=== PATIENT | female | born 1990 | race Caucasian/White ===

== ENCOUNTER 2017-09-27 10:39 | Emergency (ER) | END 2017-09-27 13:10 | disposition home or self-care (01) ==

== ENCOUNTER 2018-01-03 18:46 | Emergency (ER) | END 2018-01-03 21:30 | disposition home or self-care (01) ==

== ENCOUNTER 2018-09-15 11:28 | Emergency (ER) | payer OTHER, MEDICAID ==
[~2018-09-15] VITALS: Wt 123.6 kg
[~2018-09-15 11:28] MED LIST: ACET500C5 PO; HYDR-4011 PO; IBUP-1542 PO; PNV1TABL12 PO
[2018-09-15 11:32] VITALS: BP 183/100; PULSE 82; RESP 17
[2018-09-15] MEDS ORDERED: ACETAMINOPHEN 325 MG TAB PO STA (12:47)
--- NOTE | 2018-09-15 12:51 | ERD ---
ER Documentation Chief Complaint Chief Complaint VAG BLEEDING X2 DAYS, LMP AUG 02, 2018 HPI This is a 28-year-old A2 female who presents to the ED with complaints of vaginal bleeding since yesterday. Patient states her last menstrual cycle was August 02, 2018. She states she took two at home tests earlier last month which were both positive. She has not been able to see an [employer] yet due to her jury duty. She states she started spotting intermittently 2 days ago and yesterday passed a large clot. She is no longer bleeding but is complaining of bilateral lower pelvic pain. She also reports some lower mid back pain. She denies any fevers, chills, nausea, vomiting, dysuria, frequency, urgency. She is otherwise healthy with no other complaints. ROS All systems reviewed and are negative except as per history of present illness. Medications Home Meds Active Scripts Ibuprofen* (Motrin*) 600 Mg Tab, 600 MG PO Q6H PRN for PAIN AND OR ELEVATED TEMP, #30 TAB Prov:KAYLA ISAACS PA-C 09/15/18 Hydrocodone/Acetaminophen (Himrod 5-325 Tablet) 1 Each Tablet, 1 TAB PO Q6H PRN for PAIN, #7 TAB Prov:RUBEN TOBIN PA-C 01/03/18 Ibuprofen* (Motrin*) 600 Mg Tab, 600 MG PO Q6, #30 TAB Prov:RUBEN TOBINC 01/03/18 Acetaminophen* (Tylophen*) 500 Mg Capsule, 1 CAP PO Q6H PRN for PAIN AND OR ELEVATED TEMP, #30 CAP Prov:LIVE LEMUS PA-C 09/27/17 Reported Medications Pnv Cmb#21/Iron/Folic Acid ( Complete Caplet) 1 Tab Tablet, 1 TAB PO AM 12/11/14 Allergies Allergies: Coded Allergies: No Known Allergy (Unverified , 09/15/18) PMhx/Soc History of Surgery: No Anesthesia Reaction: No Hx Neurological Disorder: No Hx Respiratory Disorders: No Hx Cardiac Disorders: No Hx Psychiatric Problems: No Hx Miscellaneous Medical Probl: No Hx Alcohol Use: No Hx Substance Use: No Hx Tobacco Use: No FmHx Family History: No diabetes Physical Exam Vitals Vital Signs Date Temp Pulse Resp B/P (MAP) Pulse Ox O2 O2 Flow FiO2 Time Delivery Rate 09/15/18 98.5 82 17 183/100 98 11:32 (127) Physical Exam Const: No acute distress Head: Atraumatic Eyes: Normal Conjunctiva ENT: Normal External Ears, Nose and Mouth. Neck: Full range of motion. No meningismus. Resp: Clear to auscultation bilaterally Cardio: Regular rate and rhythm, no murmurs Abd: Soft, + mild bilateral pelvic tenderness, non distended. No rebound or guarding. Normal bowel sounds. Negative McBurney's. Negative Rodgers's. Skin: No petechiae or rashes Back: No midline or flank tenderness Ext: No cyanosis, or edema Neur: Awake and alert Psych: Normal Mood and Affect Result Diagram: 09/15/18 1302 09/15/18 1302 Results 24 hrs Laboratory Tests Test 09/15/18 13:02 White Blood Count 8.3 10^3/ul Red Blood Count 5.04 10^6/ul Hemoglobin 13.3 g/dl Hematocrit 41.6 % Mean Corpuscular Volume 82.5 fl Mean Corpuscular Hemoglobin 26.4 pg Mean Corpuscular Hemoglobin Concent 32.0 g/dl Red Cell Distribution Width 13.7 % Platelet Count 315 10^3/UL Mean Platelet Volume 10.2 fl Immature Granulocytes % 0.500 % Neutrophils % 73.1 % Lymphocytes % 17.3 % Monocytes % 6.7 % Eosinophils % 1.9 % Basophils % 0.5 % Nucleated Red Blood Cells % 0.0 /100WBC Immature Granulocytes # 0.040 10^3/ul Neutrophils # 6.0 10^3/ul Lymphocytes # 1.4 10^3/ul Monocytes # 0.6 10^3/ul Eosinophils # 0.2 10^3/ul Basophils # 0.0 10^3/ul Nucleated Red Blood Cells # 0.0 10^3/ul Urine Color YELLOW Urine Clarity CLEAR Urine pH 5.0 Urine Specific [place] 1.019 Urine Ketones NEGATIVE mg/dL Urine Nitrite NEGATIVE mg/dL Urine Bilirubin NEGATIVE mg/dL Urine Urobilinogen NEGATIVE mg/dL Urine Leukocyte Esterase NEGATIVE Adrianne/ul Urine Microscopic RBC 19 /HPF Urine Microscopic WBC 0 /HPF Urine Hemoglobin 1+ mg/dL Urine Glucose NEGATIVE mg/dL Urine Total Protein NEGATIVE mg/dl Sodium Level 140 mmol/L Potassium Level 4.1 mmol/L Chloride Level 104 mmol/L Carbon Dioxide Level 27 mmol/L Anion Gap 9 Blood Urea Nitrogen 12 mg/dl Creatinine 0.79 mg/dl Est Glomerular Filtrat Rate mL/min > 60 mL/min Glucose Level 95 mg/dl Calcium Level 9.4 mg/dl Total Bilirubin 0.5 mg/dl Direct Bilirubin 0.00 mg/dl Indirect Bilirubin 0.5 mg/dl Aspartate Amino Transf (AST/SGOT) 27 IU/L Alanine Aminotransferase (ALT/SGPT) 47 IU/L Alkaline Phosphatase 69 IU/L Total Protein 8.5 g/dl Albumin 4.6 g/dl Globulin 3.90 g/dl Albumin/Globulin Ratio 1.17 Beta HCG, Quantitative < 2.4 mIU/ml Current Medications Medications Dose Sig/Don Start Time Status Last (Trade) Ordered Route PRN Stop Time Admin Dose Reason Admin 650 mg ONCE STAT 09/15/18 DC 09/15/18 Acetaminophen PO 12:47 13:11 (Tylenol 09/15/18 12:49 Tab) Procedures/MDM EMERGENT LABS AND DIAGNOSTIC STUDIES: Lab Results above were reviewed and interpreted by me as below. CBC: no e/o of systemic infection or severe anemia CMP: no e/o severe acidosis, alkalosis, renal failure, diabetic ketoacidosis, liver disease Urine: 19 RBC, no significant pyuria Beta Hcg: < 2 Radiology Results as interpreted by Radiology: PROCEDURE: US OB. CLINICAL INDICATION: First trimester hemorrhage TECHNIQUE: Transabdominal and transvaginal views of the pelvis are available for review. COMPARISON: No prior studies are available for comparison. FINDINGS: The uterus is anteverted. It measures 7.2 x 3.9 x 4.3 cm. Uterus is of normal contour and echogenicity. No intrauterine gestation sac is present. The endometrial stripe complex is well demarcated measuring 5 mm in diameter. There is no fluid within the canal. The right ovary measures 1.9 x 1.6 x 2.0 cm. centimeter. The left ovary was not seen. No adnexal masses seen. There is normal arterial flow to the right ovary on color-flow Doppler imaging. There is no free fluid in the pelvis. No solid pelvic mass is present. IMPRESSION: No intrauterine gestation visualized. Question viable very early intrauterine versus spontaneous . Ectopic cannot be ruled out. Correlation with quantitative serial beta HCG levels is recommended. Nonvisualization left ovary. Nursing Notes Reviewed. Previous Medical Records requested via the Electronic Health Record. EMERGENCY DEPARTMENT COURSE / MEDICAL DECISION MAKIN28 year old A2 female presents with vaginal bleeding in the first trimester. The differential diagnosis includes threatened , spontaneous , incomplete/complete , missed , ectopic and less likely gestational trophoblastic disease and choriocarcinoma. She is afebrile and vital signs are stable. Labs without any signs of infection, dehydration or significant anemia. US negative for intrauterine and possible for spontaneous . Low quantitative beta hcg results correlates with these findings. Patient likely passed fetus tissue last night as she is no longer bleeding or passing any clots. Discussed these results with patient at bedside. She was given a copy of today's workup and told to follow up with her OBGYN next week for repeat beta hcg levels and further management. I provided an excuse from jury duty and a rx for Ibuprofen that pt can take for pain. I have low suspicion for sepsis, toxic shock syndrome, retained POC or any other emergent pelvic etiology. Strict return precautions were given. PRESCRIPTIONS: Ibuprofen SPECIALIST FOLLOW UP RECOMMENDED: OBGYN Patient's blood pressure was elevated (>120/80) but appears stable without evidence of hypertension emergency or urgency. The patient was counseled about the risks of hypertension and urged to pursue outpatient monitoring and therapy within a week with their primary care physician Departure Diagnosis: Primary Impression: Spontaneous Additional Impressions: Vaginal bleeding Pelvic pain Condition: Stable Patient Instructions: VBPG Referrals: [employer] REFERRAL LIST KAYLA ISAACS PA-C Sep 15, 2018 12:51
[2018-09-15] MEDS ORDERED: IBUP-1542 PO (14:30)
== END 2018-09-15 14:43 | disposition home or self-care (01) ==
LOC: FTE 11:28
DX: O03.9 Complete or unspecified spontaneous abortion without complication (principal); R10.2 Pelvic and perineal pain
CPT/HCPCS: 36415; 76801; 76817; 80053; 81001; 84702; 85025; 86900; 86901